=== PATIENT | male | born 1950 | race Hispanic/Latino ===

== ENCOUNTER → 2021-01-27 | Outpatient (CLI) | payer MEDICARE ==
[~2021-01-27] MED LIST: ALBUMIN 25% 12.5GM 50ML 200 ML IV ONE
[2021-01-27 15:18] LABS: BODY FLUID APPEARANCE SL.CLOUDY; BODY FLUID COLOR YELLOW; BODY FLUID TYPE PERITONEAL
[2021-01-27 17:57] LABS: RBC,BODY FLUID 1 cells/uL; WBC,BODY FLUID 146 cells/uL
[2021-01-27 18:48] LABS: LYMPHOCYTES,BODY FLUID 12 %; MONO/MACROPHG,BODY FLUID 18 %; NEUTROPHILS,BODY FLUID 4 %; OTHER CELLS,BODY FLUID 66 %
== END ==
LOC: US 13:19
PROVIDERS: ATTEND Internal Medicine Hepatology
DX: K74.60 Unspecified cirrhosis of liver (principal); R18.8 Other ascites
CPT/HCPCS: 36415; 49083; 89051

== ENCOUNTER → 2021-02-03 | Outpatient (CLI) | payer MEDICARE ==
[2021-02-03 12:22] LABS: BODY FLUID TYPE PERITONEAL
[2021-02-03 12:23] LABS: BODY FLUID APPEARANCE SL.CLOUDY; BODY FLUID COLOR YELLOW; RBC,BODY FLUID 77 cells/uL; WBC,BODY FLUID 209 cells/uL
[2021-02-03 13:38] LABS: LYMPHOCYTES,BODY FLUID 32 %; MONO/MACROPHG,BODY FLUID 59 %; NEUTROPHILS,BODY FLUID 9 %
== END ==
LOC: US 09:46
PROVIDERS: ATTEND Registered Nurse
DX: R18.8 Other ascites (principal)
CPT/HCPCS: 36415; 49083; 89051

== ENCOUNTER → 2021-02-07 | Outpatient (CLI) | payer MEDICARE | LOC: US 14:13 | PROVIDERS: ATTEND Registered Nurse | DX: R18.8 Other ascites (principal) | CPT/HCPCS: 49083 ==

== ENCOUNTER → 2021-02-12 | Outpatient (CLI) | payer MEDICARE ==
[~2021-02-12] MED LIST changes: +ALBUMIN 25% 12.5GM 50ML 150 ML IV ONE; -ALBUMIN 25% 12.5GM 50ML 200 ML IV ONE; +ALBUMIN 25% 12.5GM 50ML 50 ML IV ONE
[2021-02-12 09:30] LABS: CREATININE, SERUM 2.7 mg/dL (0.72-1.25)
[2021-02-12 13:13] LABS: BODY FLUID COLOR YELLOW; BODY FLUID TYPE PERITONEAL
[2021-02-12 13:28] LABS: RBC,BODY FLUID 10 cells/uL; WBC,BODY FLUID 234 cells/uL
[2021-02-12 13:31] LABS: BODY FLUID APPEARANCE TURBID
[2021-02-12 15:11] LABS: LYMPHOCYTES,BODY FLUID 26 %; MONO/MACROPHG,BODY FLUID 61 %; NEUTROPHILS,BODY FLUID 13 %
== END ==
LOC: US 08:52
PROVIDERS: ATTEND Registered Nurse
DX: R18.8 Other ascites (principal)
CPT/HCPCS: 36415; 49083; 82565; 84520; 89051; C1729

== ENCOUNTER → 2021-02-19 | Outpatient (CLI) | payer MEDICARE ==
[~2021-02-19] MED LIST changes: -ALBUMIN 25% 12.5GM 50ML 150 ML IV ONE; +ALBUMIN 25% 12.5GM 50ML 200 ML IV ONE; -ALBUMIN 25% 12.5GM 50ML 50 ML IV ONE
[2021-02-19 12:44] LABS: BODY FLUID APPEARANCE CLOUDY; BODY FLUID COLOR YELLOW; BODY FLUID TYPE PERITONEAL
[2021-02-19 12:46] LABS: RBC,BODY FLUID 37 cells/uL; WBC,BODY FLUID 193 cells/uL
[2021-02-19 16:16] LABS: BASOPHILS,BODY FLUID 1 %; LYMPHOCYTES,BODY FLUID 15 %; MONO/MACROPHG,BODY FLUID 61 %; NEUTROPHILS,BODY FLUID 15 %; OTHER CELLS,BODY FLUID 8 %
== END ==
LOC: US 08:27
PROVIDERS: ATTEND Registered Nurse
DX: R18.8 Other ascites (principal)
CPT/HCPCS: 36415; 49083; 87070; 87205; 89051

== ENCOUNTER → 2021-04-02 | Outpatient (CLI) | payer MEDICARE ==
[~2021-04-02] MED LIST changes: +ALBUMIN 25% 12.5GM 50ML 100 ML IV ONE
[2021-04-02 09:19] LABS: HEMOGLOBIN 9.2 g/dL (14.0-18.0)
[2021-04-02 09:45] LABS: INR 1.09; PROTHROMBIN TIME 14.7 seconds (11.9-14.5)
[2021-04-02 09:46] LABS: PARTIAL THROMBOPLASTIN TIME 44.1 seconds (23.8-35.5)
== END ==
LOC: US 08:58
PROVIDERS: ATTEND Registered Nurse
DX: R18.8 Other ascites (principal); R94.5 Abnormal results of liver function studies
CPT/HCPCS: 36415; 49083; 85014; 85049; 85610; 85730

== ENCOUNTER → 2021-05-14 | Outpatient (CLI) | payer MEDICARE ==
[~2021-05-14] MED LIST changes: -ALBUMIN 25% 12.5GM 50ML 100 ML IV ONE
[2021-05-14 13:21] LABS: INR 1.04; PROTHROMBIN TIME 14.2 seconds (11.9-14.5)
[2021-05-14 13:22] LABS: PARTIAL THROMBOPLASTIN TIME 41.1 seconds (23.8-35.5)
[2021-05-14 15:59] LABS: BODY FLUID APPEARANCE SL.CLOUDY; BODY FLUID COLOR STRAW; BODY FLUID TYPE ASCITES
[2021-05-14 17:56] LABS: RBC,BODY FLUID < 2000 cells/uL; WBC,BODY FLUID 112 cells/uL
[2021-05-14 19:14] LABS: LYMPHOCYTES,BODY FLUID 30 %; MONO/MACROPHG,BODY FLUID 40 %; NEUTROPHILS,BODY FLUID 16 %; OTHER CELLS,BODY FLUID 14 %
== END ==
LOC: US 12:42
PROVIDERS: ATTEND Registered Nurse
DX: R18.8 Other ascites (principal)
CPT/HCPCS: 36415; 49083; 85014; 85049; 85610; 85730; 89051

== ENCOUNTER → 2021-06-10 | Outpatient (CLI) | payer MEDICARE ==
[2021-06-10 12:36] LABS: BODY FLUID TYPE PERITONEAL
[2021-06-10 12:37] LABS: BODY FLUID APPEARANCE SL.CLOUDY; BODY FLUID COLOR YELLOW; RBC,BODY FLUID 0 cells/uL; WBC,BODY FLUID 160 cells/uL
[2021-06-10 14:09] LABS: LYMPHOCYTES,BODY FLUID 32 %; MONO/MACROPHG,BODY FLUID 62 %; NEUTROPHILS,BODY FLUID 6 %
== END ==
LOC: US 08:31
PROVIDERS: ATTEND Registered Nurse
DX: R18.8 Other ascites (principal)
CPT/HCPCS: 36415; 49083; 87070; 87205; 89051

== ENCOUNTER → 2021-06-26 | Outpatient (CLI) | payer MEDICARE ==
[~2021-06-26] MED LIST changes: -ALBUMIN 25% 12.5GM 50ML 200 ML IV ONE; +IOPAMIDOL 370 MG/ML 200 ML INFUS..BTL INJ ONE; +SODIUM CHLORIDE 0.9% 50ML 50 ML ONE
== END ==
LOC: CT 16:35
PROVIDERS: ATTEND Nurse Practitioner Family
DX: Z12.9 Encounter for screening for malignant neoplasm, site unspecified (principal); K74.69 Other cirrhosis of liver
CPT/HCPCS: 74178; Q9967

== ENCOUNTER → 2021-07-08 | Outpatient (CLI) | payer MEDICARE ==
[~2021-07-08] MED LIST changes: +ALBUMIN 25% 12.5GM 50ML 100 ML IV ONE; -IOPAMIDOL 370 MG/ML 200 ML INFUS..BTL INJ ONE; -SODIUM CHLORIDE 0.9% 50ML 50 ML ONE
[2021-07-08 16:18] LABS: BODY FLUID APPEARANCE CLEAR; BODY FLUID COLOR YELLOW; BODY FLUID TYPE PERITONEAL
[2021-07-08 16:28] LABS: WBC,BODY FLUID 181 cells/uL
[2021-07-08 16:29] LABS: RBC,BODY FLUID 1000 cells/uL
[2021-07-08 17:24] LABS: LYMPHOCYTES,BODY FLUID 5 %; MONO/MACROPHG,BODY FLUID 16 %; NEUTROPHILS,BODY FLUID 3 %; OTHER CELLS,BODY FLUID 76 %
== END ==
LOC: US 14:12
PROVIDERS: ATTEND Registered Nurse
DX: R18.8 Other ascites (principal)
CPT/HCPCS: 36415; 49083; 89051; C1729

== ENCOUNTER → 2021-11-11 | Outpatient (CLI) | payer MEDICARE | LOC: MRI 09:59 | PROVIDERS: ATTEND Physical Medicine & Rehabilitation | DX: M47.812 Spondylosis without myelopathy or radiculopathy, cervical region (principal) | CPT/HCPCS: 72141 ==